=== PATIENT | female | born 1950 | race Caucasian/White ===

== ENCOUNTER 2021-10-26 01:11 | Inpatient (IN) ==
[2021-10-26] MEDS ORDERED: Perflutren Lipid Microsphere 1.3 ML in 0.9 % Sodium Chloride 8.7 ML IVP PRN (10:55)
[2021-10-26] MEDS ORDERED: *HR* Heparin 5,000 UNIT/ML VIAL IVP ONE (11:00)
[2021-10-26] MEDS ORDERED: *HR* Heparin 5,000 UNIT/ML VIAL IVP PRN ×2 (11:00)
[2021-10-26] MEDS ORDERED: Ondansetron 4 MG/2 ML VIAL IVP PRN (11:05)
[2021-10-26] MEDS ORDERED: Naloxone 0.4 MG/ML INJ IVP PRN (11:05)
[2021-10-26] MEDS ORDERED: Melatonin 3 MG TABLET PO PRN (11:05)
[2021-10-26] MEDS ORDERED: DilTIAZem 50 MG/50 ML IV.SOLN IVC SCH (11:15)
[2021-10-26] MEDS: Heparin 25,000UNIT/250ML 1/2NS 25,000 UNIT/250 ML IV.SOLN IVC SCH (13:54)
[2021-10-26 14:05] LABS: Influenza A PCR Negative (Negative); Influenza B PCR Negative (Negative); Resp. Syncytial Virus PCR Negative (Negative)
[2021-10-26 14:06] LABS: SARS-CoV-2 by PCR (In House) Negative (Negative)
[2021-10-26] MEDS: Furosemide 40 MG/4 ML VIAL IVP SCH (17:55)
[2021-10-27 01:42] LABS: Basophils % 0.6 %; Eosinophils # 0.3 K/mcL (0.0-0.6); Hematocrit 39.2 % (35.3-44.9); Hemoglobin 12.3 g/dL (11.5-15.4); Immature Granulocytes % 0.3 % (0-4); Lymphocytes # 2.6 K/mcL (0.6-4.6); Lymphocytes % 38.9 %; Mean Corpuscular HGB Conc 31.4 g/dL (31.6-35.5); Mean Corpuscular Hemoglobin 29.1 pg (28.0-33.3); Mean Corpuscular Volume 92.9 fL (83.0-100.0); Monocytes # 0.6 K/mcL (0.0-1.3); Monocytes % 8.8 %; Neutrophils # 3.2 K/mcL (1.6-8.9); Platelet Count 308 K/mcL (140-400); Red Blood Count 4.22 M/mcL (3.82-4.97); Red Cell Distribution Width 14.6 % (11.5-14.5); Segmented Neutrophils % 47.4 %; White Blood Count 6.7 K/mcL (4.3-11.1)
[2021-10-27 02:04] LABS: Calcium 8.6 mg/dL (8.6-10.3); Phosphorous 3.7 mg/dL (2.7-4.5); Potassium 3.4 mEq/L (3.5-5.1)
[2021-10-27 02:15] LABS: Thyroid Stimulating Hormone 2.418 mcIU/mL (0.340-5.600)
[2021-10-27] MEDS: Metoprolol XL (24 HR) Succ 25 MG TAB.ER.24H PO SCH (08:01)
[2021-10-27] MEDS: Aspirin Enteric Coated 81 MG Tablet PO SCH (08:01)
[2021-10-27] MEDS: Furosemide 40 MG/4 ML VIAL IVP SCH ×2 (08:01→17:21)
[2021-10-27] MEDS: Acetaminophen 325 MG TABLET PO PRN (11:35)
[2021-10-27] MEDS: Heparin 25,000UNIT/250ML 1/2NS 25,000 UNIT/250 ML IV.SOLN IVC SCH (14:41)
[2021-10-28] MEDS ORDERED: *HR* Heparin 10,000 UNIT/10 ML VIAL ONE (08:23)
[2021-10-28] MEDS ORDERED: 0.9 % Sodium Chloride 2,000 ML ONE (08:24)
[2021-10-28] MEDS ORDERED: Heparin 1,000 UNITS/500 mL 500 ML ONE (08:24)
[2021-10-28] MEDS ORDERED: ISOVUE-370 200 ML INFUS..BTL ONE (08:24)
[2021-10-28] MEDS ORDERED: Nitroglycerin 1,000 MCG/5 ML VIAL IV ONE ×2 (08:24→08:26)
[2021-10-28] MEDS: Metoprolol XL (24 HR) Succ 25 MG TAB.ER.24H PO SCH (08:35)
[2021-10-28] MEDS ORDERED: *HR* FentaNYL (PF) 100 MCG/2 ML VIAL ONE (08:36)
[2021-10-28] MEDS ORDERED: *HR* Midazolam HCl 2 MG/2 ML VIAL ONE (08:37)
[2021-10-28] MEDS: Aspirin Enteric Coated 81 MG Tablet PO SCH (09:46)
[2021-10-28 10:57] LABS: Hematocrit 38.7 % (35.3-44.9); Hemoglobin 12.6 g/dL (11.5-15.4); Mean Corpuscular HGB Conc 32.6 g/dL (31.6-35.5); Mean Corpuscular Hemoglobin 30.2 pg (28.0-33.3); Mean Corpuscular Volume 92.8 fL (83.0-100.0); Mean Platelet Volume 9.9 fL (9.4-12.4); Platelet Count 313 K/mcL (140-400); Red Blood Count 4.17 M/mcL (3.82-4.97); Red Cell Distribution Width 14.3 % (11.5-14.5); White Blood Count 6.6 K/mcL (4.3-11.1)
[2021-10-28 11:16] LABS: BUN/Creatinine Ratio 29 (6-26); Blood Urea Nitrogen 29 mg/dL (8-23); Calcium 8.7 mg/dL (8.6-10.3); Carbon Dioxide 25 mEq/L (23-29); Chloride 110 mEq/L (98-107); Glucose 116 mg/dL (70-105); Osmolality,Calculated 299 (280-300); Sodium 141 mEq/L (136-145); eGFR For African Americans > 60 (> 60); eGFR For Non-African Americans 55 (> 60)
[2021-10-28] MEDS: 0.9 % Sodium Chloride 1,000 ML IVC SCH (11:37)
[2021-10-28] MEDS: Furosemide 40 MG/4 ML VIAL IVP SCH (12:02)
[2021-10-28] MEDS: ARIPiprazole 5 MG TABLET PO SCH (12:17)
[2021-10-28] MEDS: Heparin 25,000UNIT/250ML 1/2NS 25,000 UNIT/250 ML IV.SOLN IVC SCH (12:18)
[2021-10-28] MEDS: Furosemide 40 MG TABLET PO SCH (15:10)
[2021-10-28] MEDS: Apixaban 5 MG TABLET PO SCH (20:48)
[2021-10-29] MEDS: 0.9 % Sodium Chloride 1,000 ML IVC SCH (04:40)
[2021-10-29] MEDS: Acetaminophen 325 MG TABLET PO PRN (05:02)
[2021-10-29 08:11] LABS: Calcium 9.1 mg/dL (8.6-10.3); Potassium 4.6 mEq/L (3.5-5.1)
[2021-10-29] MEDS: Apixaban 5 MG TABLET PO SCH (08:45)
[2021-10-29] MEDS: ARIPiprazole 5 MG TABLET PO SCH (08:45)
[2021-10-29] MEDS: Metoprolol XL (24 HR) Succ 25 MG TAB.ER.24H PO SCH (08:45)
[2021-10-29] MEDS: Furosemide 40 MG TABLET PO SCH (08:45)
[2021-10-29] MEDS: Aspirin Enteric Coated 81 MG Tablet PO SCH (08:45)
[2021-10-29 08:59] VITALS: O2SAT 97
[2021-10-29 11:12] VITALS: BP 132/85; PULSE 71; TEMP 98.1
== END 2021-10-29 14:30 | disposition home or self-care (01) | DRG 280 ==
LOC: 3ANU → SUATTDRO 09:37
PROVIDERS: ADMIT Internal Medicine; ATTEND Internal Medicine